=== PATIENT | male | born 1985 | race Caucasian/White ===

== ENCOUNTER 2017-12-18 20:44 | Emergency (ER) | payer BC ==
[2017-12-18 22:11] LABS: BASOPHIL % 0.4 % (0-2); PLATELET COUNT 218 x10^3mcL (130-400); RED CELL DISTRIBUTION WIDTH 13.5 % (11.5-14.5)
[2017-12-18 22:27] LABS: CALCIUM 9.3 mg/dL (8.5-10.1); CARBON DIOXIDE 26.4 mmol/L (21-32); CHLORIDE SERUM 105 mmol/L (98-107); CREATININE SERUM 0.8 mg/dL (0.7-1.3); GFR1 > 60 mL/min; GLUCOSE SERUM 90 mg/dL (74-106); POTASSIUM SERUM 3.6 mmol/L (3.5-5.1); SODIUM SERUM 141 mmol/L (136-145)
[2017-12-18 22:32] LABS: ALBUMIN 4.7 g/dL (3.4-5.0); ALKALINE PHOSPHATASE 73 U/L (46-116); ALT/SGPT 20 U/L (16-63); AST/SGOT 11 U/L (15-37); BILIRUBIN TOTAL 1.51 mg/dL (0.20-1.00); CHOLESTEROL 172 mg/dL (<200); TOTAL PROTEIN, SERUM 8.1 g/dL (6.4-8.2)
[2017-12-18 23:24] VITALS: BP 111/75
== END 2017-12-18 23:24 | disposition home or self-care (01) ==
LOC: ED 20:44
PROVIDERS: Emergency Medicine
DX: R07.89 Other chest pain (principal); R05 Cough; R09.81 Nasal congestion; Z88.0 Allergy status to penicillin
CPT/HCPCS: J1885; Q0092

== ENCOUNTER 2018-05-27 20:12 | Emergency (ER) | payer BC ==
[~2018-05-27] VITALS: Ht 175.3 cm; Wt 78.5 kg
[2018-05-27 20:22] VITALS: Ht 175.3 cm; Wt 78.5 kg
[2018-05-27 21:12] LABS: microscopic required? NO
[2018-05-27 21:18] LABS: UA SPECIFIC GRAVITY 1.015 (1.005-1.035); urine erythrocyte NEGATIVE (NEGATIVE)
[2018-05-27 21:22] LABS: BASOPHIL % 0.2 % (0-2); PLATELET COUNT 231 x10^3mcL (130-400); RED CELL DISTRIBUTION WIDTH 13.1 % (11.5-14.5)
[2018-05-27 21:28] LABS: CALCIUM 9.1 mg/dL (8.5-10.1); CARBON DIOXIDE 26.2 mmol/L (21-32); CHLORIDE SERUM 103 mmol/L (98-107); CREATININE SERUM 0.7 mg/dL (0.7-1.3); GFR1 > 60 mL/min; GLUCOSE SERUM 106 mg/dL (74-106); POTASSIUM SERUM 3.2 mmol/L (3.5-5.1); SODIUM SERUM 139 mmol/L (136-145)
[2018-05-27 21:33] LABS: ALBUMIN 4.5 g/dL (3.4-5.0); ALKALINE PHOSPHATASE 68 U/L (46-116); ALT/SGPT 18 U/L (16-63); AST/SGOT 9 U/L (15-37); TOTAL PROTEIN, SERUM 7.8 g/dL (6.4-8.2)
[2018-05-27 22:39] VITALS: BP 129/75
== END 2018-05-27 22:39 | disposition home or self-care (01) ==
LOC: ED 20:12
PROVIDERS: Emergency Medicine
DX: K52.9 Noninfective gastroenteritis and colitis, unspecified (principal); Z88.0 Allergy status to penicillin
CPT/HCPCS: J7030; Q0092